=== PATIENT | female | born 1975 | race Caucasian/White ===

== ENCOUNTER 2021-01-24 01:53 | Emergency (ER) | payer BC, SELFPAY ==
[2021-01-24 01:58] VITALS: BP 152/99; PULSE 61; RESP 16; TEMP 36.6; O2SAT 98; BMI 22.1
--- NOTE | 2021-01-24 02:38 | ED_ITS ---
HPI - Wound/Laceration General Chief Complaint: Wound/Laceration Stated Complaint: laceration Time Seen by Provider: 01/24/21 02:08 Source: patient Mode of arrival: ambulatory Limitations: no limitations History of Present Illness HPI narrative: Patient sliced the tip of right thumb from kitchen slicer around 18:30 lacerated tip of the nail and the tip of the thumb with a flap Related Data Allergies Allergy/AdvReac Type Severity Reaction Status Date / Time No Known Allergies Allergy Verified 01/24/21 02:03 Review of Systems Review of Systems: Yes all other systems are reviewed and are negative [facility] Past Medical History Medical History No known health problems Social History Social History Alcohol intake: never Smoking Status: Unknown if ever smoked Use of substances other than those prescribed or required for medical reasons: No Advance Directives: No Advance Directives Information Provided: No Physical Exam Vital Signs: Vital Signs: Last Vital Signs Temp 97.9 F 01/24/21 01:58 Pulse 61 01/24/21 01:58 Resp 16 01/24/21 01:58 BP 152/99 H 01/24/21 01:58 Pulse Ox 98 01/24/21 01:58 Body Mass Index 22.1 Const: General: no acute distress, well developed, alert and awake Extrem: Hand/finger images: 1. 1.5 cm laceration involving the right thumbnail Procedures Laceration Laceration 1: Site: hand Side (If applicable): right Size (cm): 1.5 Description: linear and flap Depth: simple, single layer Local Anesthetic: lidocaine 2% Amount of anesthesia used (mL): 1 Skin layer closed with: vicryl Size (cm): 6-0 Technique: simple, interrupted Discharge Plan Discharge Clinical Impression: Laceration Patient Disposition: Home, Self-Care Instructions: Laceration (ED) Additional Instructions: Local care as advised sutures removal in 1 week
[2021-01-24] MEDS: Lidocaine HCl 2 % MPF 5 ML VIAL INFILTRATI (02:44)
== END 2021-01-24 02:47 | disposition home or self-care (01) ==
LOC: HO.ED 02:41
PROVIDERS: Emergency Provider Internal Medicine
DX: S61.011A Laceration without foreign body of right thumb without damage to nail, initial encounter (principal); M79.644 Pain in right finger(s); W26.9XXA Contact with unspecified sharp object(s), initial encounter; Y93.9 Activity, unspecified; Y92.9 Unspecified place or not applicable; Y99.9 Unspecified external cause status
CPT/HCPCS: 12001; 99284

== ENCOUNTER 2022-03-01 15:19 | Emergency (ER) | payer BC, SELFPAY ==
--- NOTE | ~2022-03-01 | CT_ITS ---
EXAMINATION: CT CHEST, ABDOMEN AND PELVIS WITHOUT CONTRAST CLINICAL INFORMATION: Fall off of horse with left anterior chest wall pain COMPARISON: None TECHNIQUE: Multidetector volumetric imaging was performed from the thoracic inlet through the pubic symphysis. Sagittal and coronal reformatted images were obtained on the technologist's workstation. Axial MIP volume rendering provided. This CT examination was performed using dose optimization techniques as appropriate, variously including the following: *Automated exposure control *Adjustment of mA and/or kV according to patient size (this includes techniques or standardized protocols for targeted exams where dose is matched to indication/reason for exam; i.e. extremities or head) *Use of iterative reconstruction technique DLP: 609 mGy-cm FINDINGS: CHEST: Lungs: Small calcified granulomas in the left lung apex and right lower lobe. There are a few scattered sub-4 mm lateral pulmonary nodules and/or intrapulmonary/perifissural lymph nodes. No suspicious appearing pulmonary nodules. No airspace consolidation. No pneumothorax. Central airways are clear. Mediastinum: No cardiomegaly or pericardial effusion. No appreciable coronary artery vascular calcifications. Normal caliber thoracic aorta. No aneurysm. No mediastinal hematoma. Normal caliber central pulmonary trunk. Small calcified right hilar lymph nodes/granulomas. No enlarged mediastinal or hilar lymph nodes by size criteria. Pericardium/Pleura: There is no significant effusion. No pleural mass or thickening. Chest Wall/Axilla: Unremarkable. ABDOMEN/PELVIS: Liver, Gallbladder, Biliary Tree: The liver is normal in size, shape, and attenuation. No focal hepatic lesion or biliary ductal dilatation is present. The gallbladder is unremarkable with no evidence of radiopaque gallstones, gallbladder wall thickening, or pericholecystic inflammatory changes. Pancreas: Unremarkable. Spleen: Unremarkable. Adrenal Glands: Unremarkable. Kidneys and Ureters: Small 3 mm nonobstructing left lower pole renal calculus. No other renal calculi. No appreciable renal lesion. No perinephric stranding collections. No hydronephrosis. Bladder: Unremarkable. Gastrointestinal Tract: Sigmoid diverticulosis. No evidence of acute diverticulitis. No dilated bowel loops. No bowel wall thickening. No ascites or free air. Abdominal Wall: No hernia is demonstrated. Lymphovascular Structures: Lymph nodes: No lymphadenopathy. Vascular: Slightly tortuous abdominal aorta. No abdominal aortic aneurysm. No periaortic or retroperitoneal hematoma. Pelvic Viscera: Gynecologic structures are grossly unremarkable. OSSEOUS STRUCTURES: Essentially nondisplaced fracture of the left parasymphyseal pubic bone extending to the adjacent left superior pubic ramus. Pubic symphysis is intact. Proximal femurs are intact. Hip joints are normally located. No acetabular fracture. Comminuted nondisplaced bilateral sacral fractures. Accompanying intramuscular edema/hemorrhage in the piriformis muscles with mild perimuscular fat stranding and small amount of presacral edema/hemorrhage. No subluxation or acute fracture in the lumbar spine. Advanced disc degenerative change at L4-L5. No subluxation or fracture the thoracic spine. The sternum is intact. No rib fractures are seen. Visualized clavicles and scapula are intact. CT/CT abdomen pelvis wo con IMPRESSION: 1. Essentially nondisplaced fracture of the left parasymphyseal pubic bone extending to the adjacent left superior pubic ramus. Pubic symphysis remains intact. 2. Comminuted nondisplaced bilateral sacral fractures with accompanying intramuscular edema/hemorrhage in the piriformis muscles bilaterally and small amount of presacral edema/hemorrhage. 3. No additional fractures identified. 4. No acute soft tissue injury identified in the chest, abdomen, or pelvis. 5. No intra-abdominal free fluid or free air.
--- NOTE | ~2022-03-01 | CT_ITS ---
EXAMINATION: CT PELVIS WITHOUT CONTRAST CLINICAL INFORMATION: Reassess hematoma. COMPARISON: CT abdomen/pelvis done earlier today at 6:44 PM. TECHNIQUE: Helical scanning was performed with submillimeter collimation through the pelvis. Sagittal and coronal multiplanar 2-D reconstructions were obtained. This CT examination was performed using dose optimization techniques as appropriate, variously including the following: *Automated exposure control. *Adjustment of mA and/or kV according to patient size (this includes techniques or standardized protocols for targeted exams where dose is matched to indication/reason for exam; i.e. extremities or head). *Use of iterative reconstruction technique. DLP: 349 mGy-cm FINDINGS: PELVIS: Post traumatic hematoma of the piriform muscles, and presacral edema/hemorrhage not significantly changed when compare to earlier today. OSSEOUS STRUCTURES: Redemonstration of multiple pelvic fractures not significantly changed. Specifically, an essentially nondisplaced left parasymphyseal pubic bone fracture extending into the adjacent left superior pubic rami and comminuted nondisplaced bilateral sacral fractures. Pubic symphysis is intact. Proximal femurs are intact. Hip joints are normally located. CT/CT pelvis wo con IMPRESSION: No significant change when compared to study from earlier today.
--- NOTE | ~2022-03-01 | CT_ITS ---
EXAMINATION: CT HEAD WITHOUT CONTRAST CT CERVICAL SPINE WITHOUT CONTRAST CLINICAL INFORMATION: Fall off horse. COMPARISON: None TECHNIQUE: Contiguous axial imaging was performed from the skull base to vertex without intravenous administration of contrast. Contiguous axial imaging was performed from the upper chest through the skull base without intravenous administration of contrast. Coronal and sagittal reformats were obtained at the acquisition workstation. This CT examination was performed using dose optimization techniques as appropriate, variously including the following: *Automated exposure control *Adjustment of mA and/or kV according to patient size (this includes techniques or standardized protocols for targeted exams where dose is matched to indication/reason for exam; i.e. extremities or head) *Use of iterative reconstruction technique DLP: 617 and 284 mGy-cm FINDINGS: Head: There is no evidence of acute intracranial hemorrhage or edematous territorial infarction. There is no abnormal attenuation within the brain parenchyma. Chambers-white matter differentiation is preserved. The ventricles are normal in size and configuration. No evidence for obstructive hydrocephalus. No abnormal mass effect or midline shift. No extra-axial fluid collections. No acute soft tissue or osseous abnormalities. The mastoid air cells and paranasal sinuses are clear. Cervical Spine: The atlantooccipital and atlantoaxial articulations remain well aligned. Straightening of the normal cervical lordosis. Otherwise, there is anatomic alignment of the vertebral bodies and posterior elements. No evidence of acute fracture or subluxation. The vertebral body heights and disc spaces are maintained. There is no prevertebral soft tissue swelling. The thyroid gland and remaining cervical soft tissues are normal in appearance. The lung apices demonstrate mild subpleural thickening/scarring. CT/CT cervical spine wo con IMPRESSION: No acute intracranial pathology. No acute cervical spine fractures or malalignment.
--- NOTE | ~2022-03-01 | XR_ITS ---
EXAMINATION: XR HIP, LEFT CLINICAL INFORMATION: Trauma with pain COMPARISON: None TECHNIQUE: AP pelvis, AP and frog-leg lateral views of the left hip. FINDINGS: Minimally displaced fracture of the left superior pubic ramus/parasymphyseal pubic bone. Equivocal nondisplaced fracture of the inferior pubic ramus. No additional fracture or dislocation. The bilateral hip joint spaces are maintained. Pubic symphysis and SI joints are congruent and intact. Minimal subchondral sclerosis at the pubic symphysis. Disc degenerative changes in the visualized lower lumbar spine. XR/XR hip LT w PEL1V IMPRESSION: 1. Minimally displaced left superior pubic ramus/pubic bone fracture and equivocal nondisplaced inferior pubic ramus fracture.
[2022-03-01 15:31] VITALS: BP 151/91; PULSE 91; RESP 16; TEMP 37.1; O2SAT 99; BMI 22.3
--- NOTE | 2022-03-01 16:16 | ED_ITS ---
HPI - Extremity Injury (Lower) General Chief Complaint: Extremity Injury, Lower Stated Complaint: fall/L hip pain Time Seen by Provider: 03/01/22 16:10 Source: patient Mode of arrival: ambulatory Limitations: no limitations History of Present Illness HPI Narrative: 46-year-old female presents to the emergency department complaints of left- sided hip pain status post falling off a horse prior to her arrival. Patient tells me her saddle with shifting, the horse got aggravated, stand on a timed legs resulting in her falling and landing on the left side of her body. She tells me and she fell she did not hit her head, she was wearing a helmet, no loss of consciousness. She reports that she landed on her left side and is experiencing left-sided hip pain inability to ambulate, inabilityto bear weight and she tells me she feels like her legs are weak. She denies any back pain, dizziness, vision changes, numbness, tingling, saddle paresthesia, urinary/bowel incontinence / retention, headache MD complaint: hip injury Onset (ago): hour(s) (2) Type of Injury: blunt Place: other (horeback riding ) Severity: severe Severity scale (1-10): >10 Relieving factors: nothing Exacerbating factors: nothing Context: fall Associated symptoms: swelling and unable to bear weight Other symptoms: none Related Data Allergies Allergy/AdvReac Type Severity Reaction Status Date / Time No Known Allergies Allergy Verified 01/24/21 02:03 Review of Systems Review of Systems: Constitutional : No Weight loss, No Fever, No Chills, No Fatigue, No Malaise ENT/Mouth : No sore throat, No Rhinorrhea Eyes: No Eye Pain, No Swelling, No Redness Cardiovascular : No Chest Pain, No SOB, No Dyspnea on Exertion, No Orthopnea, No Edema, No Palpitations Respiratory : No Cough, No Sputum, No Wheezing Gastrointestinal : No Nausea, No Vomiting, No Diarrhea, No Constipation, No abdominal Pain, No Hematochezia, No Melena Genitourinary : No Dysuria, No Urinary Frequency, No Hematuria, Musculoskeletal : + joint pain, No Myalgias, No Joint Swelling Skin : No Skin Lesions, No rash Neuro : No Weakness, No Numbness, No Dizziness, No Headache All other systems reviewed and are negative Yes all other systems are reviewed and are negative [facility] Past Medical History Attestation statement: The following information was validated with the patient. Source: old records reviewed and nursing notes reviewed Medical History No known health problems Social History Social History Alcohol intake: never Advance Directives: No Advance Directives Information Provided: No Physical Exam Vital Signs: Vital Signs: Last Vital Signs Temp 98.5 F 03/01/22 21:41 Pulse 70 03/01/22 21:41 Resp 18 03/01/22 21:41 BP 124/63 03/01/22 21:41 Pulse Ox 99 03/01/22 21:41 O2 Del Method 03/01/22 21:41 BMI result Body Mass Index 22.3 vital signs stable Appearance: Alert.? Oriented X3.? No acute distress.? Head: Normocephalic, atraumatic, no step-offs or deformities Eyes: Pupils equal, round and reactive to light.? ENT: Pharynx normal.? Neck: Normal inspection.? Neck supple.? CVS: Normal heart rate and rhythm.? Pulses normal.? Respiratory: No respiratory distress.? Breath sounds normal.? Abdomen: Soft and nontender.? Skin: Skin warm and dry.? Normal skin color.? Normal skin turgor.? Extremities: No lower extremity edema.? No calf ttp. 5/5 strength to bilateral upper and right lower extremity. Unable to assess strength to left lower extremity. Patient unable to move left hip secondary to pain. Pain with palpation over SI joint. Back: No midline tenderness, no C-spine tenderness, full range of motion, no CVA tenderness bilaterally Neuro: Oriented X 3.? No motor deficit.? No sensory deficit. CN 2-12 intact . No saddle paresthesias Course Reevaluation(s) Reevaluation #1: x-ray of the hip/ pelvis with minimally displaced left superior pubic rami/pubic bone fracture an equivocal nondisplaced inferior pubic ramus fracture. Reached at [facility], who recommends she followed in the office, patient shows is protected weight-bearing with walker, she denies with patient to follow-up in 4 weeks. will educate patient on this. Due to the mechanism of injury were also obtain CT of the chest, abdomen and pelvis as well as head to rule out intracranial hemorrhage, internal bleeding. Time: 21:30 Reevaluation #2: Shared CT results with ortho Niki who also shared this case with the plan is still toe touch weight bearing. Discussed this with my attending who tells me patient is good for DC I also discussed this case with another attending who recommends repeat CT to ensure that the hematoma wasn't expanding. Dr. Buchanan evaluated patient. Agrees with plan. I did offer the patient PT, Case Management however she tells me she would rather sleep in the comfort of her own home. At this time patient does not want PT or case management. Time: 21:50 Reevaluation #3: Repeat pelvis CT with no significant changes when compared to the study from earlier today, low suspicion for expanding hematoma PE. Patient still hdez no complaints of bladder/bowel incontinence / retention, weakness, saddle paresthesias, very low suspicion for cauda equina. At this time patient will be discharged home with Ortho follow-up. Advised her to return with new or worsening symptoms. Time: 22:48 MDM - Extremity Injury (Lower) MDM Narrative Medical decision making narrative: [id number] 46-year-old female presents status post falling out while horseback riding with left-sided hip pain, reports it is severe pain and is unable to bear weight. Physical examination with pain with palpation to left hip, unable to move left hip secondary to pain. No overlying skin changes. Regular rate and rhythm. Lungs clear. Abdomen soft nontender nondistended. No saddle paresthesias. Based off patient history and physical exam will rule out fractures, dislocations. Unlikely that this is cauda equina. Plan at this time is imaging Medical Records Attestation: I reviewed the patient's medical records. Lab Data Attestation: I reviewed the patient's lab results. Labs: Lab Results 03/01/22 Range/Units 18:05 Urine Test NEGATIVE (NEGATIVE) Critical Care Time Critical Care Time Critical Care Time: Yes Total Critical Care Time: 35 Attestation: I attest to this time spent taking care of the patient, obtaining history, physical, reviewing labs, imaging, speaking to my attending, speaking to specialist. Discharge Plan Discharge Clinical Impression: Fracture of multiple pubic rami, Fall Patient Disposition: Home, Self-Care Instructions: Pelvic Fracture (ED) Additional Instructions: Take your medications as prescribed. If you were prescribed antibiotics today, it is important that you take your medication to their entirety, do not skip any doses, do not finish them early. Follow-up with your primary care provider this week. Follow-up with orthopedics as soon as possible. Return to the emergency department with new or worsening symptoms. Such as fevers, chills, chest pain, shortness of breath, nausea, vomiting, dizziness, headache, vision changes, lethargy In case of emergency call 911 take ibuprofen every 6 hours, Tylenol every 4 as needed for pain or discomfort. Please ambulate with with your walker (toe touch weight bearing) as instructed. Offered you physical therapy/ case management however you refused. ?XR/XR hip LT w PEL1V IMPRESSION: 1. Minimally displaced left superior pubic ramus/pubic bone fracture and equivocal nondisplaced inferior pubic ramus fracture. ? CT head/brain & cervical spine CT/CT cervical spine wo con IMPRESSION: No acute intracranial pathology. No acute cervical spine fractures or malalignment. ? ? Referrals: [facility] [place] [facility]] - 2 weeks Stand Alone Forms: Work/School Release
[2022-03-01 16:43] VITALS: BP 133/77; PULSE 76; RESP 16; TEMP 36.7; O2SAT 99
--- NOTE | 2022-03-01 17:00 | PC.NURSE ---
describes fall from horse aprox 1130. fell onto left hip. no head strike. no LOC. was near syncopal but didn't pass out. has palpable pedal pulse left foot. brisk cap refill. skin pwd. no external rotation/shortening. no c spine tenderness.
[2022-03-01 18:15] LABS: UPreg QC Valid YES; Urine Pregnancy NEGATIVE (NEGATIVE)
[2022-03-01] MEDS: Ibuprofen 600 MG TABLET PO (19:29)
--- NOTE | 2022-03-01 19:32 | PC.NURSE ---
medicated per Nov. Notified JENNIFER Beal .
[2022-03-01 21:41] VITALS: BP 124/63; PULSE 70; RESP 18; TEMP 36.9; O2SAT 99
--- NOTE | 2022-03-01 21:53 | PC.NURSE ---
This RN assumed care at 1900. Patient has palpable pedal pulses in both feet, able to wiggle toes, skin is pale, warm, and dry. Patient complains of 10/10 pain, was medicated by Divya RODRIGUEZ earlier in the shift.
[2022-03-01] MEDS: Acetaminophen 325 MG TABLET 650 MG PO (23:12)
[2022-03-01 23:21] VITALS: BP 109/60; PULSE 72; RESP 18; O2SAT 98
== END 2022-03-02 00:28 | disposition home or self-care (01) ==
PROVIDERS: Physician Assistant; Emergency Provider Emergency Medicine Emergency Medical Services
DX: S32.502A Unspecified fracture of left pubis, initial encounter for closed fracture (principal); S09.90XA Unspecified injury of head, initial encounter; M25.552 Pain in left hip; G44.309 Post-traumatic headache, unspecified, not intractable; R10.9 Unspecified abdominal pain; M54.50 Low back pain, unspecified; M54.6 Pain in thoracic spine; M54.2 Cervicalgia; R10.2 Pelvic and perineal pain; V80.010A Animal-rider injured by fall from or being thrown from horse in noncollision accident, initial encounter; Y93.52 Activity, horseback riding; Y92.9 Unspecified place or not applicable; Y99.8 Other external cause status
CPT/HCPCS: 70450; 71250; 72125; 72192; 73502; 74176; 81025; 96372; 99283; 99284

== ENCOUNTER 2022-03-07 11:56 | Emergency (ER) | payer BC, OTHER, SELFPAY ==
--- NOTE | ~2022-03-07 | CT_ITS ---
EXAMINATION: CT ABDOMEN AND PELVIS WITHOUT CONTRAST CLINICAL INFORMATION: Follow-up hematoma. COMPARISON: 03/01/2022 TECHNIQUE: Multidetector volumetric imaging was performed from the superior aspect of the liver through the pubic symphysis. Sagittal and coronal reformatted images were obtained on the technologist's workstation. This CT examination was performed using dose optimization techniques as appropriate, variously including the following: *Automated exposure control *Adjustment of mA and/or kV according to patient size (this includes techniques or standardized protocols for targeted exams where dose is matched to indication/reason for exam; i.e. extremities or head) *Use of iterative reconstruction technique DLP: 388 mGy-cm FINDINGS: LUNG BASES: The visualized lung bases are unremarkable. LIVER, GALLBLADDER, AND BILIARY TREE: The liver is normal in size, shape, and attenuation. No focal hepatic lesion or biliary ductal dilatation is present. Postprandial contraction of the gallbladder. No biliary ductal dilation. PANCREAS: Uniform attenuation without ductal dilation, mass or inflammation. SPLEEN: Normal in size. ADRENAL GLANDS: No mass KIDNEYS AND URETERS: A nonobstructing 3-4 mm left lower pole calculus unchanged. No hydronephrosis. BLADDER: Unremarkable. GASTROINTESTINAL TRACT: No bowel obstruction. Normal appendix. A few sigmoid diverticula again noted without diverticulitis. A small quantity of presacral free fluid is again noted, decreased in volume in the interval. No free air. ABDOMINAL WALL: No significant hernia is appreciated. LYMPH NODES: No adenopathy. VASCULAR: No retroperitoneal hemorrhage. PELVIC VISCERA: Uterus and adnexa within normal limits. As above, slight decrease in presacral fluid. OSSEOUS STRUCTURES: Acute fracture of the medial left superior and inferior pubic rami. No significant residual visualized muscular hematoma. CT/CT abdomen pelvis wo con IMPRESSION: 1. Left pubic rami fracture. 2. Decreasing hematoma and presacral fluid. 3. Nonobstructive left nephrocalcinosis. 4. Sigmoid diverticulosis. Fleischner guidelines were followed.
[2022-03-07 12:01] VITALS: BP 111/57; PULSE 74; RESP 18; TEMP 36.9; O2SAT 97; BMI 22.3
--- NOTE | 2022-03-07 12:18 | ED_ITS ---
HPI - General Adult General Chief complaint: General Medical Stated complaint: Fall/pelvic fracture/fever Time Seen by Provider: 03/07/22 12:02 Source: patient and family () Mode of arrival: wheelchair Limitations: no limitations History of Present Illness HPI narrative: Patient is a 46 year old female presenting to the emergency department today requesting reevaluation of her broken pelvis. Patient states that she was seen here a little awhile ago and was told that she had a broken pelvis. Patient states that she was never offered at home physical therapy and she would like that set up. Patient states that she called the orthopedic office and they can't get her in until March 24 and she feels that is too far away. Additionally, patient states that she would like a new CT scan to show her hematoma is doing better and she will need a work note for longer time off. Patient denies any dizziness, lightheadedness, abdominal pain, nausea, vomiting, fever, chills, blurry vision, double vision, loss of vision, chest pain, difficulty breathing, shortness of breath, back pain, night sweats, pain with urination, increased urinary frequency, increased urinary urgency, blood in her urine or stool, syncope or a near syncopal episode, any new trauma or falls since the initial incident, bowel incontinence, bladder incontinence, bowel retention, bladder retention, or any other complaints at this time. Onset (ago): day(s) Location: pelvis Radiation: non-radiation Severity: mild Severity scale (1-10): 2 Quality: dull Pain Consistency: constant Relieving factors: none Exacerbating factors: movement Associated symptoms: denies other symptoms Treatments prior to arrival: none Related Data Previous Rx's Medication Instructions Recorded ketorolac 10 mg tablet 10 mg PO TID PRN pain 5 days #15 03/07/22 tabs Allergies Allergy/AdvReac Type Severity Reaction Status Date / Time No Known Allergies Allergy Verified 01/24/21 02:03 Review of Systems Constitutional: Constitutional: Reports no additional constitutional complaints, Denies chills, Denies fever(s) and Denies night sweats Eyes: Eyes: Reports no additional eye complaints, Denies blurry vision, Denies change in vision, Denies diplopia, Denies eye discharge, Denies loss of vision and Denies eye pain ENT: Denies dizziness Cardiovascular: Cardiovascular: Reports no additional cardiovascular complaints, Denies chest pain, Denies lightheadedness, Denies Loss of Consciousness and Denies dyspnea Respiratory: Respiratory: Reports no additional respiratory complaints and Denies dyspnea Gastrointestinal: Gastrointestinal: Reports no additional gastrointestinal complaints, Denies abdominal pain, Denies melena, Denies hematochezia, Denies change in bowel habits and Denies change in stool character Genitourinary: Genitourinary: Denies hematuria, Denies urinary frequency, Denies dysuria, Reports pelvic pain, Denies urinary incontinence, Denies urinary hesitancy and Denies urinary urgency Musculoskeletal: Musculoskeletal: Reports no additional musculoskeletal complaints, Denies numbness and Denies tingling Neurologic: Denies dizziness, Denies loss of vision, Denies numbness and Denies tingling Psychiatric: Psychiatric: Reports no additional psychiatric complaints Endocrine: Endocrine: Reports no additional endocrine complaints Hematologic/Lymphatic: Hematologic/Lymphatic: Reports no additional hematologic/lymphatic complaints Allergic/Immunologic: Allergic/Immunologic: Reports no additional allergic/immunologic complaints PMFSH Past Medical History Attestation statement: The following information was validated with the patient. Source: old records reviewed Medical History No known health problems Social History Social History Alcohol intake: never Advance Directives: No Advance Directives Information Provided: No Physical Exam ED Vital Signs: Vital Signs - 24 hr 03/07/22 12:01 Temperature 98.4 F Pulse Rate 74 Respiratory Rate 18 Blood Pressure 111/57 L Pulse Oximetry 97 Oxygen Delivery Method Room Air BMI result Body Mass Index 22.3 Const General: cooperative, no acute distress, alert and awake Nutritional Appearance: well nourished Orientation/consciousness: patient oriented x3 Limitations: no limitations [facility] Head: Yes normal to inspection and Yes atraumatic Ears: hearing grossly normal bilaterally and external ears normal General nose exam: Normal external nose present, no nasal discharge noted and no epistaxis Face and sinus: Yes normal facial exam, No abrasion and No laceration Mouth: Normal oral and palatal mucosa present, no drooling and no muffled voice Eyes General: appearance normal, both eyes and all related structures Periorbital: periorbital findings normal Eyelids: Yes eyelids normal Conjunctivae: conjunctivae normal Pupils: Equal, round and reactive pupils present EOM: EOMs intact bilaterally Neck Neck: Yes normal visual inspection, Yes full ROM and Yes no lymphadenopathy Chest Chest palpation & inspection: normal inspection of the chest Resp Effort & Inspection: normal respiratory effort and able to speak in complete sentences Auscultation: clear to auscultation bilaterally Cardio Rate: regular rate Rhythm: regular rhythm GI Inspection: Yes normal to inspection Back/Spine/Pelvis Pelvis: Other pelvic findings (pelvic tenderness with palpation and movement, consistent with known fx) Coccyx: Other pelvic findings (pelvic tenderness with palpation and movement, consistent with known fx) Neuro General: patient oriented x3 and moves all extremities Cranial nerves: Yes Equal, round and reactive pupils present Cognition (Neuro): normal cognition Motor exam (neuro): 5/5 motor strength present throughout Sensory Exam: Normal double simultaneous stimulation for sensation Coordination: [id number] test normal Extrem General: Yes normal to inspection, Yes full ROM and Yes capillary refill normal Psych Appearance: grossly normal Mental Status: mental status grossly normal Affect: normal affect Attitude: cooperative Thought process: Normal thought process present Thought content: Normal thought content present Insight: Good insight present (Psych) Medical Decision Making MDM Narrative Medical decision making narrative: Patient is a 46 year old female presenting to the emergency department today with pelvic pain and requesting additional resources for her pelvic fracture. Patient's physical exam showed tenderness in the pelvis with palpation and movement, consistent with her previously known fx. Patient's pelvic CT showed a resolving hematoma and the previously known fracture. I explained my physical exam findings as well as all test results to the patient and the patient's . I answered all questions asked by the patient and the patient's . Case management spoke to the patient and arranged for physical therapy at home. I spoke to the [facility]opedic [facility] psychiatrist who stated that although she is on vacation the next week, she will look into getting the patient in faster than March 24. I stressed the importance of the patient taking her medication as prescribed. I stressed the importance of the patient following up with her primary care provider. I stressed the importance of the patient returning to the emergency department immediately if her symptoms were to worsen or if she were to develop any dizziness, shortness of breath, difficulty breathing, chest pain, blurry vision, loss of vision, nausea, vomiting, abdominal pain, fever, chills, back pain, or any other complaints. Patient and the patient's verbalized agreement and understanding with this treatment plan and discharge. Differential Diagnosis Differential Diagnosis: pelvic fracture Medical Records Medical records reviewed: Yes I reviewed the patient's medical records. Imaging Data Pelvis CT: Attestation: I personally reviewed and interpreted this imaging study as follows: My impression: Pelvic fracture as previously noted. Radiologist's impression: EXAMINATION: CT ABDOMEN AND PELVIS WITHOUT CONTRAST? CLINICAL INFORMATION: Follow-up hematoma.? COMPARISON: 03/01/2022? TECHNIQUE: Multidetector volumetric imaging was performed from the superior aspect of the liver through the pubic symphysis. Sagittal and coronal reformatted images were obtained on the technologist's workstation.? This CT examination was performed using dose optimization techniques as appropriate, variously including the following: *Automated exposure control *Adjustment of mA and/or kV according to patient size (this includes techniques or standardized protocols for targeted exams where dose is matched to indication/reason for exam; i.e. extremities or head) *Use of iterative reconstruction technique DLP: 388 mGy-cm FINDINGS: LUNG BASES: The visualized lung bases are unremarkable.? LIVER, GALLBLADDER, AND BILIARY TREE: The liver is normal in size, shape, and attenuation. No focal hepatic lesion or biliary ductal dilatation is present. Postprandial contraction of the gallbladder. No biliary ductal dilation.? PANCREAS: Uniform attenuation without ductal dilation, mass or inflammation.? SPLEEN: Normal in size.? ADRENAL GLANDS: No mass? KIDNEYS AND URETERS: A nonobstructing 3-4 mm left lower pole calculus unchanged. No hydronephrosis.? BLADDER: Unremarkable.? GASTROINTESTINAL TRACT: No bowel obstruction. Normal appendix. A few sigmoid diverticula again noted without diverticulitis. A small quantity of presacral free fluid is again noted, decreased in volume in the interval. No free air.? ABDOMINAL WALL: No significant hernia is appreciated.? LYMPH NODES: No adenopathy. VASCULAR: No retroperitoneal hemorrhage. PELVIC VISCERA: Uterus and adnexa within normal limits. As above, slight decrease in presacral fluid.? OSSEOUS STRUCTURES: Acute fracture of the medial left superior and inferior pubic rami. No significant residual visualized muscular hematoma.? CT/CT abdomen pelvis wo con IMPRESSION: ? 1. Left pubic rami fracture. 2. Decreasing hematoma and presacral fluid. 3. Nonobstructive left nephrocalcinosis. 4. Sigmoid diverticulosis.? ? Fleischner guidelines were followed. Dictated By: Christopher Garcia MD Signed By: Electronically signed by Christopher Garcia MD 03/07/22 5836 Discharge Plan Discharge Clinical Impression: Closed pelvic fracture Patient Disposition: Home, Self-Care Instructions: Pelvic Fracture (ED) Additional Instructions: Follow up with your primary care provider and an orthopedic provider. Return to the emergency department immediately if your symptoms worsen or if you develop any dizziness, shortness of breath, difficulty breathing, chest pain, blurry vision, loss of vision, nausea, vomiting, abdominal pain, fever, chills, back pain, or any other complaints. Prescriptions: New ketorolac 10 mg tablet 10 mg PO TID PRN (Reason: pain) 5 Days Qty: 15 0RF Referrals: [facility] [place] [facility] [place] [Provider Group] (Call to establish and follow up with a primary care provider. If you already have a primary care provider, please follow up with them. ) [facility] [place] [facility] [Provider Group] (Call to establish and follow up with a primary care provider. If you already have a primary care provider, please follow up with them. ) [facility] [place] [facility] [Provider Group] (Call to establish and follow up with a primary care provider. If you already have a primary care provider, please follow up with them. ) [facility] [place] [facility] [Provider Group] (Call and discuss an earlier appointment than March 24. ) Stand Alone Forms: Work/School Release Interventions: ED Discharge Assessment Last Done: 03/07/22 15:18 Discharge Date/Time: 03/07/22 15:19 Print Language: Turkmen
--- NOTE | 2022-03-07 13:23 | MHC.CM.ED ---
REFERRAL TO [facility] FOR HOME P.T. [facility] AT [facility]
== END 2022-03-07 15:19 | disposition home or self-care (01) ==
PROVIDERS: Emergency Provider Emergency Medicine Emergency Medical Services
DX: S32.9XXA Fracture of unspecified parts of lumbosacral spine and pelvis, initial encounter for closed fracture (principal); W19.XXXA Unspecified fall, initial encounter; Y93.9 Activity, unspecified; Y92.9 Unspecified place or not applicable; Y99.9 Unspecified external cause status
CPT/HCPCS: 74176; 99283; 99284

== ENCOUNTER 2022-03-17 07:29 | Outpatient (REF) | payer BC, SELFPAY ==
--- NOTE | ~2022-03-17 | XR_ITS ---
EXAMINATION: XR PELVIS CLINICAL INFORMATION: Pain COMPARISON: None TECHNIQUE: AP view of the pelvis. FINDINGS: There is normal symmetry of bilateral SI joints and hip joints. There is a nondisplaced fracture involving left anterior superior pubic rami. The pelvic is slightly tilted to the left. There are degenerative disc changes L4-L5 disc level with moderate spondylosis. XR/XR pelvis 1-2V IMPRESSION: Nondisplaced fracture left anterior superior pubic rami.
== END 2022-03-17 07:30 | disposition home or self-care (01) ==
LOC: HO.HOSX 07:29
PROVIDERS: Visit Provider Physician Assistant
DX: M25.559 Pain in unspecified hip (principal)
CPT/HCPCS: 72170

== ENCOUNTER 2022-04-06 14:53 | Outpatient (REF) | payer BC, SELFPAY ==
--- NOTE | ~2022-04-06 | XR_ITS ---
EXAMINATION: XR SHOULDER, RIGHT CLINICAL INFORMATION: Pain COMPARISON: None TECHNIQUE: AP external rotation, Grashey, scapular Y, and axillary views of the right shoulder. FINDINGS: The bones and soft tissues are normal. No fracture. Glenohumeral and acromioclavicular alignment is anatomic with normal joint space. No abnormal soft tissue calcifications. XR/XR shoulder RT min 2V IMPRESSION: Unremarkable right shoulder exam.
== END 2022-04-06 14:54 | disposition home or self-care (01) ==
LOC: HO.HOSX 14:53
PROVIDERS: Visit Provider Physician Assistant
DX: M25.511 Pain in right shoulder (principal)
CPT/HCPCS: 73030

== ENCOUNTER 2022-04-08 12:43 | Outpatient (REF) | payer BC, SELFPAY ==
--- NOTE | ~2022-04-08 | MR_ITS ---
EXAMINATION: MR LUMBAR SPINE WITHOUT CONTRAST CLINICAL INFORMATION: Patient reports fall February 2022. Patient reports fractured coccyx and pelvic fractures. Low back pain greater on the left side. Cramps left lower leg. History of herniated disc. COMPARISON: X-ray of the lumbosacral spine January 2007, MRI lumbosacral spine September 2018. CT scan of the abdomen and pelvis February [address] scan of the pelvis 03/01/2022. TECHNIQUE: MRI of the lumbar spine was obtained using routine sequences without contrast. FINDINGS: VERTEBRAL BODIES AND PARASPINAL STRUCTURES: Vertebral bodies normally aligned. Advanced degenerative disc changes present at L4-L5, unchanged. Reactive endplate changes secondary to this degenerative change. Disc bulging at L4-L5. Bone marrow edema present within the partially visualized sacrum secondary to nondisplaced/minimally displaced bilateral sacral fractures as seen on prior imaging examinations. Vertebral body height normal. Marrow otherwise normal. Vertebral body hemangioma T12 is unchanged. Surrounding soft tissues are unremarkable. CONUS MEDULLARIS AND CAUDA EQUINA: Conus at the level of L2. Cauda equina unremarkable. SPINAL LEVELS: T12-L1: Normal. L1-L2: Normal. L2-L3: Normal. L3-L4: Normal. L4-L5: Advanced degenerative disc change with over 50% loss in the expected disc height. There is generalized bulging of the disc with disc osteophyte complex formation. The facets are normal. Degenerative changes result in mild narrowing of the central canal, [id number] narrowing the right neural foramen and mild narrowing of the left neural foramina. L5-S1: There is mild central bulging of the disc minimally indenting on the thecal sac. The facets are normal. Findings result in minimal narrowing of the central canal. Neural foramina normal. MR/MR lumbar spine wo con IMPRESSION: Persistent marrow changes in the sacrum compatible with previously noted sacral fractures No change in the appearance of the lumbosacral spine compared with September 2018. Multilevel spondylosis of the lumbosacral spine detailed above per level. At L4-L5, there are advanced degenerative disc changes resulting in mild narrowing of the central canal, [id number] narrowing of the right neural foramina and mild narrowing of left neural foramina.
== END 2022-04-08 12:44 | disposition home or self-care (01) ==
LOC: HO.MRI 12:43
PROVIDERS: Visit Provider Physician Assistant
DX: M51.26 Other intervertebral disc displacement, lumbar region (principal)
CPT/HCPCS: 72148

== ENCOUNTER 2022-04-29 13:09 | Outpatient (REF) | payer BC, SELFPAY ==
--- NOTE | ~2022-04-29 | XR_ITS ---
EXAMINATION: XR PELVIS CLINICAL INFORMATION: Hip pain COMPARISON: Pelvic radiograph 03/17/2022, 03/01/2022; CT pelvis 03/01/2022 TECHNIQUE: AP view of the pelvis. FINDINGS: There are chronic posttraumatic change left pubis with mild deformity and mild sclerosis related to prior fracture. Fracture line is still faintly visible. There is no periostitis. No change in alignment from prior exam 03/17/2022. No diastases pubis or SI joints. The remainder the bony pelvis is unremarkable. The SI joints and hips appear normal. There are degenerative changes L4-L5 with disc narrowing and vertebral spurring. XR/XR pelvis 1-2V IMPRESSION: -Posttraumatic changes left pubis. No change in alignment. Fracture line still faintly visible. -SI joints and hips unremarkable. -Degenerative disc changes L4-L5.
== END 2022-04-29 13:10 | disposition home or self-care (01) ==
LOC: HO.HOSX 13:09
PROVIDERS: Visit Provider Physician Assistant
DX: M25.552 Pain in left hip (principal)
CPT/HCPCS: 72170

== ENCOUNTER 2022-05-05 14:35 | Outpatient (REF) | payer BC, SELFPAY ==
--- NOTE | ~2022-05-05 | MR_ITS ---
EXAMINATION: MR CERVICAL SPINE WITHOUT CONTRAST CLINICAL INFORMATION: Right arm radiculopathy. COMPARISON: None. TECHNIQUE: Multiplanar, multisequential imaging of the cervical spine was performed without contrast. FINDINGS: VERTEBRAL BODIES AND PARASPINAL SOFT TISSUES: The marrow signal is within normal limits. There is moderate multilevel disc space narrowing. Mild posterior subluxations evident at the C4-C5 and C6-C7 levels. No marrow or soft tissue edema visible. There is a mild leftward curvature of the cervical spine. The paraspinal soft tissues are normal. The vertebral artery flow-voids are maintained. The imaged lung apices are clear. CERVICOMEDULLARY JUNCTION AND VISUALIZED POSTERIOR FOSSA: The craniovertebral junction and imaged portions of the brain parenchyma appear normal. No cord signal abnormality or syrinx is seen. SPINAL LEVELS: C2-C3: No significant disc pathology. No central canal stenosis or foraminal narrowing. C3-C4: Central disc protrusion mildly distorts the ventral thecal sac. No cord compression or central canal stenosis. Patent foramina. C4-C5: Shallow left paracentral disc protrusion superimposed upon a mild disc-osteophyte complex slightly distorts the ventral cord and thecal sac. No central canal stenosis or foraminal narrowing. C5-C6: Shallow left paracentral disc protrusion and very mild disc bulge with endplate spurring. No central canal stenosis. Patent foramina. C6-C7: Mild retrosubluxation and broad-based disc-osteophyte complex with mild ventral thecal sac deformity. Mild bilateral foraminal narrowing. C7-T1: No disc pathology. No central canal stenosis or foraminal narrowing. MR/MR cervical spine wo con IMPRESSION: Multilevel cervical spondylosis without significant central canal stenosis. Disc protrusions at the C3-C4, C4-C5, and C5-C6 levels with mild endplate spurring.
== END 2022-05-05 14:36 | disposition home or self-care (01) ==
LOC: HO.MRI 14:35
PROVIDERS: Visit Provider Nurse Practitioner Family
DX: M54.12 Radiculopathy, cervical region (principal); M79.609 Pain in unspecified limb; R20.2 Paresthesia of skin; M50.20 Other cervical disc displacement, unspecified cervical region
CPT/HCPCS: 72141

== ENCOUNTER 2022-06-11 16:54 | Outpatient (REF) | payer BC, SELFPAY ==
--- NOTE | ~2022-06-11 | XR_ITS ---
EXAMINATION: XR THORACIC SPINE CLINICAL INFORMATION: Pain. COMPARISON: Thoracic spine radiographs dated 01/15/2022. TECHNIQUE: Frontal, lateral and swimmer's views of the thoracic spine were obtained. FINDINGS: There is a mild thoracolumbar dextroscoliosis. Vertebral body heights and alignment are otherwise normal. The thoracic disc spaces are well-maintained. No acute fracture or spondylolisthesis is seen. This multi-level mild thoracic spondylosis. The posterior elements are intact. The paravertebral soft tissues are unremarkable. XR/XR thoracic spine 3V IMPRESSION: Unremarkable examination. EXAMINATION: XR SACRUM AND COCCYX CLINICAL INFORMATION: Pain. COMPARISON: None TECHNIQUE: 3 frontal and lateral views of the sacrum and coccyx were obtained. FINDINGS: There are no sacrococcygeal fractures. No sacrococcygeal bone, joint or soft tissue abnormality is demonstrated. There is incompletely characterized, marked degenerative disc disease at L4-L5. IMPRESSION: 1. Unremarkable examination of the sacrum and coccyx. 2. There is incompletely characterized marked degenerative disc disease at L4-L5.
--- NOTE | ~2022-06-11 | XR_ITS ---
EXAMINATION: XR THORACIC SPINE CLINICAL INFORMATION: Pain. COMPARISON: Thoracic spine radiographs dated 01/15/2022. TECHNIQUE: Frontal, lateral and swimmer's views of the thoracic spine were obtained. FINDINGS: There is a mild thoracolumbar dextroscoliosis. Vertebral body heights and alignment are otherwise normal. The thoracic disc spaces are well-maintained. No acute fracture or spondylolisthesis is seen. This multi-level mild thoracic spondylosis. The posterior elements are intact. The paravertebral soft tissues are unremarkable. XR/XR sacrum coccyx min 2V IMPRESSION: Unremarkable examination. EXAMINATION: XR SACRUM AND COCCYX CLINICAL INFORMATION: Pain. COMPARISON: None TECHNIQUE: 3 frontal and lateral views of the sacrum and coccyx were obtained. FINDINGS: There are no sacrococcygeal fractures. No sacrococcygeal bone, joint or soft tissue abnormality is demonstrated. There is incompletely characterized, marked degenerative disc disease at L4-L5. IMPRESSION: 1. Unremarkable examination of the sacrum and coccyx. 2. There is incompletely characterized marked degenerative disc disease at L4-L5.
== END 2022-06-11 16:55 | disposition home or self-care (01) ==
LOC: HO.XRAY 16:54
PROVIDERS: Visit Provider Nurse Practitioner Family
DX: M54.6 Pain in thoracic spine (principal); M53.3 Sacrococcygeal disorders, not elsewhere classified; S32.599A Other specified fracture of unspecified pubis, initial encounter for closed fracture
CPT/HCPCS: 72072; 72220

== ENCOUNTER 2022-06-23 20:37 | Outpatient (REF) | payer BC, SELFPAY | END 2022-06-23 20:38 | disposition home or self-care (01) | LOC: HO.HOSX 20:37 | PROVIDERS: Visit Provider Physician Assistant | DX: Z13.89 Encounter for screening for other disorder (principal) ==

== ENCOUNTER 2022-06-24 | Outpatient (REF) | payer BC, SELFPAY ==
--- NOTE | ~2022-06-24 | XR_ITS ---
EXAMINATION: XR PELVIS CLINICAL INFORMATION: Pain. COMPARISON: Pelvis 04/29/2022. TECHNIQUE: AP view of the pelvis. FINDINGS: Bilateral hip joints and SI joints are symmetric and normal. No visible acute fracture, dislocation or subluxation seen. There is loss of L4-L5 disc height with spondylosis. No visible acute fracture, dislocation or subluxation seen. There is an oblique fracture left anterior pubis with callus formation unchanged to 04/29/2022. The soft tissues are normal. XR/XR pelvis 1-2V IMPRESSION: Mild degenerative disc changes L4-L5 disc with ventral spondylosis. Unremarkable SI joints and hip joints. Old left pubic fracture.
== END 2022-06-24 00:01 | disposition home or self-care (01) ==
LOC: HO.HOSX
PROVIDERS: Visit Provider Physician Assistant
DX: M54.12 Radiculopathy, cervical region (principal); M54.16 Radiculopathy, lumbar region; R20.2 Paresthesia of skin; M79.604 Pain in right leg; S32.592D Other specified fracture of left pubis, subsequent encounter for fracture with routine healing; X58.XXXD Exposure to other specified factors, subsequent encounter
CPT/HCPCS: 72170

== ENCOUNTER 2022-07-23 09:00 | Outpatient (RCR) | payer BC, SELFPAY ==
--- NOTE | 2022-05-19 13:10 | MHC.PT.EP ---
[facility] [place] Office [place] Office [place] Office [address] Micah Ross [address] [phone] F: [phone] F: [phone] F: [phone] F: [phone] Physical Therapy Plan of Care Date of Evaluation: Date of Surgery: Diagnosis: This is a 43 yo female presenting to skilled PT with a script for pubic ramus fracture Assessment: This is a 43 yo female presenting to skilled PT with a script for pubic ramus fracture. Patient comes to PT today due to a horseback riding accident on 03/01/22 where she was [place] and on the way down she fell due to an unleashed harness and landed on her left side. She reports she did not hit her head but she was wearing a helmet, and no loss of consciousness however per recent documentation by [facility] she was dragged by the horse for a short distance after she fell and per patient needed to ride back in order to return. Patient was in [place] when this happened and drove to [facility] where she has since been having her care continued. She has been evaluated by [facility], Orthopedics service and pain management. Patient sustained injury of left pubic rami fracture and bilateral non displaced sacral fracture complicated by hematoma per xrays and CT scans. She was on bed rest for 2+ weeks and needed max assist for transfers in/out of bed and with rolling in bed as well. Following the incident she started home PT and has progressed from bedrest to ambulation with walker to no AD seen at [facility] today. Patient reports she has difficulty with prolonged sitting, LB ADLs, walking or standing. 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 Today the patient reports her back pain is mostly at the coccyx (described as sharp), mid thoracic (described as pinching) and lower back R paraspinal tenderness and achiness. She also reports right sided groin pain (as well as numbness). She also reports BLE cramping but denies numbness and tingling. Denies changes in bowel and bladder. Pain increases changing position from standing up or sitting down as well with with walking and LB ADLs. She uses a pressure relief cushion for sitting. She ambulates without AD as of now but moves slowly. Patient reports she also has a previous back pain history from multiple child births and pregnancies but now experiences significant increase in back pain. As of additional note she also has neck pain (she has had a c-spine MRI) that radiates to her right upper extremity. Patient reports she is awaiting to be scheduled for EMG and nerve conduction studies but does not feel like her symptoms are carpal tunnel in nature and has not been able to get an appointment for this until September. Due to the fact that her PT script is for her low back/pelvis, we will be focusing on this going forward. Assessment reveals pain that ranges up to a 6/10. She demos decreased lumbar and hip ROM, decreased core, lumbar and hip strength due to pain and bedrest, impaired gait pattern as described above, impaired joint mobility and tenderness to palpation, decreased transfer tolerance demonstrating compensatory movements as well as gross functional decline with ADLs, work related tasks, driving, walking, sitting and standing as well as stairs. She is a good candidate for skilled PT 2x/wk for 5wks. Frequency and Duration: The patient will be seen 2x/wk for 5wks Short Term Goals: I with HEP Demo proper core stab without cues required Improve pain to no more than 4/10 at the worst Septic [employer]er Goals: Demo normal gait pattern without compensation Perform normal and safe squat techniques without compensation Demo normal AROM and joint mobility without symptoms or pain Report 75% improvement in functional movement, pain and outcome measure Treatment Plan: Modalities to reduce pain, spasms and effusion. Manual therapy to restore motion and function. Therapeutic exercise to improve strength and flexibility. Neuromuscular re-education for posture and balance. Therapeutic activities to return to functional activities of daily living. Electronically signed by: Johanne Keller PT Please sign and return to therapist. Thank you for your referral.
--- NOTE | 2022-10-29 10:23 | MHC.PT.DC ---
[facility] [place] Office [place] Office [place] Office [address] Micah Ross [address] [phone] F: [phone] F: [phone] F: [phone] F: [phone] Physical Therapy Discharge Report Diagnosis: This is a 43 yo female presenting to skilled PT with a script for pubic ramus fracture Date of Surgery: Date of Evaluation: 05/19/22 Date of Discharge: 10/29/22 Treatments to Date: 16 Cancellations to Date: 0 No Shows to Date: 0 Discharge Status: Improved Function Independent with HEP Patient Elected to Stop Discharge Summary: Pt is I with HEP. Pt is slow with progress due to sacral pathologies. She does continue with decreased mobility, endurance and strength due to pain but understands that she needs to continue to work on her HEP. DC due to transition to therapy for c-spine and ready for I with program. Electronically signed by: Johanne Keller PT Please sign and return to therapist. Thank you for your referral.
== END 2022-10-29 10:24 | disposition home or self-care (01) ==
LOC: HO.PTCHIC 09:00
PROVIDERS: PCP Internal Medicine; Visit Provider Physician Assistant
DX: S32.592A Other specified fracture of left pubis, initial encounter for closed fracture (principal)
CPT/HCPCS: 97110; 97140; 97162

== ENCOUNTER 2022-07-29 14:08 | Outpatient (REF) | payer BC, SELFPAY ==
--- NOTE | 2022-07-29 10:30 | EMG_ITS ---
Please see scanned EMG / Nerve Conduction Report. MTDD
== END 2022-07-29 14:09 | disposition home or self-care (01) ==
LOC: HO.NEURO 14:08
PROVIDERS: Visit Provider Orthopaedic Surgery
DX: R20.0 Anesthesia of skin (principal); R20.2 Paresthesia of skin
CPT/HCPCS: 95885; 95913

== ENCOUNTER 2022-08-12 09:31 | Outpatient (REF) | payer BC, SELFPAY ==
--- NOTE | ~2022-08-12 | CT_ITS ---
EXAMINATION: CT SACRUM CLINICAL INFORMATION: History of remote trauma. Feels movement in the tailbone. COMPARISON: CT abdomen and pelvis 03/07/2022. TECHNIQUE: 2 mm thin axial and reformatted 2 mm thin sagittal and coronal images of cervical spine were obtained. DLP: 196 mGy-cm FINDINGS: There is a healed left pubic rami fracture with no recurrent fracture seen. Visualized right pubic bone, the entire pelvis and SI joints are normal. There is mild osteopenia of the sacrum but no visible fracture. There is mild osteopenia of the sacrum but no fracture seen. The prevertebral and presacral soft tissues are normal. Incidental finding of degenerative disc changes L4-L5 disc level with vacuum disc phenomenon and ventral spondylosis. CT/CT sacrum IMPRESSION: Healed left pubic rami fracture. There is no new fracture seen at this time. However, there is mild osteopenia of the sacrum but no old healed or new sacral fracture seen. The SI joints are symmetrical and normal.
== END 2022-08-12 09:32 | disposition home or self-care (01) ==
LOC: HO.CT 09:31
PROVIDERS: Visit Provider Nurse Practitioner Family
DX: M53.2X8 Spinal instabilities, sacral and sacrococcygeal region (principal); S32.599A Other specified fracture of unspecified pubis, initial encounter for closed fracture; M53.3 Sacrococcygeal disorders, not elsewhere classified
CPT/HCPCS: 72192

== ENCOUNTER 2022-08-24 12:22 | Outpatient (REF) | payer BC, SELFPAY ==
--- NOTE | ~2022-08-24 | XR_ITS ---
EXAMINATION: XR PELVIS CLINICAL INFORMATION: Pain. COMPARISON: None TECHNIQUE: AP view of the pelvis. FINDINGS: There is normal symmetry of bilateral hip joints and SI joints without bony erosive changes, loose bodies or enthesophytes. No aggressive lytic or sclerotic process involving the bones. The soft tissues are normal. There are moderate degenerative disc changes with spondylosis L4-L5 disc level. XR/XR pelvis 1-2V IMPRESSION: 1. Unremarkable AP pelvis exam. 2. Moderate degenerative disc changes with spondylosis L4-L5 disc level.
== END 2022-08-24 12:23 | disposition home or self-care (01) ==
LOC: HO.HOSX 12:22
PROVIDERS: Visit Provider Physician Assistant
DX: M25.551 Pain in right hip (principal); M25.552 Pain in left hip
CPT/HCPCS: 72170

== ENCOUNTER → 2022-10-06 10:10 | Outpatient (BNVA) | payer BC, SELFPAY | PROVIDERS: PCP Internal Medicine; Visit Provider Psychiatry & Neurology Neurology | DX: M54.2 Cervicalgia (principal) ==

== ENCOUNTER 2022-10-07 08:00 | Outpatient (RCR) | payer BC, SELFPAY ==
--- NOTE | 2022-11-06 10:37 | MHC.PT.DC ---
[facility] [place] Office [place] Office [place] Office [address] Micah Ross [address] [phone] F: [phone] F: [phone] F: [phone] F: [phone] Physical Therapy Discharge Report Diagnosis: Cervical radiculopathy; thoracic spine pain. Date of Surgery: Date of Evaluation: 07/30/22 Date of Discharge: 11/06/22 Treatments to Date: 16 Cancellations to Date: No Shows to Date: Discharge Status: Improved Function Independent with HEP Recommend MD Follow-up Discharge Summary: Milka has been an active participant in her therapy in and out of the clinic; although has improved her pain and function she persists with daily pain. She is I with an appropriate home program and is recommended to follow up with her MD on her progress and persisting symptoms. Electronically signed by: Rei Melgoza PT. Please sign and return to therapist. Thank you for your referral.
== END 2022-11-06 10:37 | disposition home or self-care (01) ==
LOC: HO.PTCHIC 08:00
PROVIDERS: PCP Internal Medicine; Visit Provider Nurse Practitioner Family
DX: M54.6 Pain in thoracic spine (principal); M54.12 Radiculopathy, cervical region
CPT/HCPCS: 97110; 97140; 97161

== ENCOUNTER 2023-07-12 08:35 | Outpatient (AMB) | payer MEDICAID, SELFPAY ==
[2023-07-12 08:42] VITALS: BP 128/76; PULSE 66; RESP 14; O2SAT 97; BMI 23.6
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
== END 2023-07-12 08:58 | disposition home or self-care (01) ==
PROVIDERS: PCP Internal Medicine; Visit Provider Nurse Practitioner Family
DX: M54.2 Cervicalgia (principal); M54.6 Pain in thoracic spine; M54.9 Dorsalgia, unspecified; M53.3 Sacrococcygeal disorders, not elsewhere classified
CPT/HCPCS: 99214

== ENCOUNTER → 2023-07-12 08:35 | Outpatient (BNVA) | payer OTHER, SELFPAY | PROVIDERS: PCP Internal Medicine; Visit Provider Nurse Practitioner Family | DX: M54.2 Cervicalgia (principal); M54.6 Pain in thoracic spine; M54.9 Dorsalgia, unspecified; M53.3 Sacrococcygeal disorders, not elsewhere classified | CPT/HCPCS: 99212 ==